=== PATIENT | female | born 1970 | race Caucasian/White ===

== ENCOUNTER 2020-07-18 14:55 | Emergency (ER) | payer MEDICAID, SELFPAY ==
--- NOTE | ~2020-07-18 | XR_ITS ---
EXAMINATION: XR CHEST CLINICAL INFORMATION: Shortness of breath COMPARISON: None TECHNIQUE: Frontal view of the chest was obtained. FINDINGS: No significant acute abnormality is noted involving the heart, lungs, mediastinum, bony thorax or soft tissues. A coronary stent may be present. XR/XR chest 1V IMPRESSION: No acute intrathoracic disease.
[2020-07-18 15:43] VITALS: BP 134/87; PULSE 63; RESP 16; TEMP 37.3; O2SAT 97; BMI 23.6
--- NOTE | 2020-07-18 15:55 | ECG_ITS ---
Test Reason : CP Blood Pressure : / mmHG Vent. Rate : 057 BPM Atrial Rate : 057 BPM P-R Int : 164 ms QRS Dur : 082 ms QT Int : 420 ms P-R-T Axes : 041 005 017 degrees QTc Int : 408 ms Sinus bradycardia Otherwise normal ECG No previous ECGs available Referred By: Avelino Henry Electronically Signed By:Austin Zhang
--- NOTE | 2020-07-18 16:35 | ED_ITS ---
HPI - SOB/Dyspnea General Chief Complaint: Dyspnea Stated Complaint: 2nd covid shot,sob Time Seen by Provider: 07/18/20 16:35 Source: patient Mode of arrival: ambulatory Limitations: no limitations History of Present Illness HPI Narrative: Patient got 2nd shot of COVID vaccine 3 days ago since yesterday noticed body aches little nausea headache subjective shortness of breath was saturating 97% here at room air asking for chest x-ray and COVID testing. Patient works as a [employer] patient does have a history of mild asthma MD elicited complaint: shortness of breath Onset (ago): day(s) (2) Related Data Allergies Allergy/AdvReac Type Severity Reaction Status Date / Time Opioids - Morphine Analogues AdvReac Nausea and Verified 07/18/20 15:53 Vomiting Review of Systems Review of Systems: Yes all other systems are reviewed and are negative [facility] Past Medical History Medical History Myocardial infarct Social History Social History Alcohol intake: current Alcohol intake frequency: holidays/special occasions only Smoking Status: Never smoker Use of substances other than those prescribed or required for medical reasons: No Advance Directives: No Advance Directives Information Provided: Yes Physical Exam Vital Signs: Vital Signs: Last Vital Signs Temp 99.1 F 07/18/20 15:43 Pulse 63 07/18/20 15:43 Resp 16 07/18/20 15:43 BP 134/87 07/18/20 15:43 Pulse Ox 97 07/18/20 15:43 Body Mass Index 23.6 Appearance: Alert. Oriented X3. No acute distress. Eyes: Pupils equal, round and reactive to light. ENT: Pharynx normal. Neck: Normal inspection. Neck supple. CVS: Normal heart rate and rhythm. Pulses normal. Respiratory: No respiratory distress. Breath sounds normal. Abdomen: Soft and nontender. Bowel sounds are present, no mass palpable, no CVA tenderness Skin: Skin warm and dry. Normal skin color. Normal skin turgor. Extremities: No lower extremity edema. Neuro: Oriented X 3. No motor deficit. No sensory deficit. MDM - SOB/Dyspnea MDM Narrative Medical decision making narrative: Patient clinically asymptomatic subjective weakness and shortness of breath already received 2nd shot of COVID vaccine likely the side effect. Chest x-ray negative for any acute infiltrate COVID repeat testing was negative will discharge patient home Lab Data Attestation: I reviewed the patient's lab results. Labs: Lab Results 07/18/20 Range/Units 16:53 COVID-19 ([facility]) Negative (Negative) COVID-19 Clin Com See Note Discharge Plan Discharge Clinical Impression: Acute viral syndrome Patient Disposition: Home, Self-Care Instructions: Viral Syndrome (ED) Additional Instructions: Your COVID testing and chest x-ray is negative the symptoms is likely mild viral syndrome drink plenty of fluid take Tylenol/Motrin for fever
[2020-07-18 17:19] LABS: COVID-19 Test Negative (Negative)
== END 2020-07-18 17:44 | disposition home or self-care (01) ==
PROVIDERS: Emergency Provider Internal Medicine; PCP Nurse Practitioner Pediatrics
DX: R50.83 Postvaccination fever (principal); B34.9 Viral infection, unspecified; M79.10 Myalgia, unspecified site; R51.9 Headache, unspecified; T50.B95A Adverse effect of other viral vaccines, initial encounter; Y92.239 Unspecified place in hospital as the place of occurrence of the external cause; Z20.822 Contact with and (suspected) exposure to COVID-19
CPT/HCPCS: 36415; 71045; 87635; 93005; 99283; 99284